=== PATIENT | male | born 1960 | race Caucasian/White ===

== ENCOUNTER → 2017-11-01 09:42 | Outpatient (CLI) | payer BC, SELFPAY ==
[2017-11-01 11:09] LABS: Alanine Aminotransferase 24 U/L (12-78); Albumin Level 3.9 gm/dL (3.4-5.0); Albumin/Globulin Ratio 1.3 (1.1-1.8); Alkaline Phosphatase 89 U/L (46-116); Anion Gap 14.6 mEq/L (5-15); Aspartate Amino Transferase 15 U/L (15-37); Bilirubin,Total 0.5 mg/dL (0.2-1.0); Blood Urea Nitrogen 14 mg/dL (7-18); Calcium 9.2 mg/dL (8.5-10.1); Carbon Dioxide 24 mmol/L (21.0-32.0); Chloride 107 mmol/L (98-107); Chol/HDL Ratio 3.1 (1-3.5); Cholesterol 231 mg/dL (140-200); Creatinine,Serum 0.84 mg/dL (0.70-1.30); Estimated Glomerular Filt Rate 94 ml/min (>60); GFR (African American) 114 ML/MIN (>60); Glucose 109 mg/dL (74-106); HDL Cholesterol 75 mg/dL (27-67); LDL Cholesterol 126 mg/dL (0-130); Potassium 4.6 mmoL/L (3.5-5.1); Sodium 141 mmol/L (136-145); Total Protein,Serum 6.9 gm/dL (6.4-8.2); Triglycerides 151 mg/dL (30-200); VLDL Cholesterol 30 mg/dL (0-40)
== END ==
PROVIDERS: PCP Internal Medicine Adolescent Medicine; Visit Provider Internal Medicine Adolescent Medicine
DX: I10 Essential (primary) hypertension (principal)
CPT/HCPCS: 36415; 80053; 80061

== ENCOUNTER → 2017-11-11 16:36 | Outpatient (CLI) | payer BC, SELFPAY ==
--- NOTE | 2017-11-11 16:47 | XR_ITS ---
XR elbow RT min 3V HISTORY: Pain redness and swelling of the elbow/cellulitis ORDERING PHYSICIAN: Yamileth Reed PATIENT AGE: 57 years COMPARISON: None FINDINGS: Soft tissue swelling is present at the olecranon region. No radiopaque foreign body or displaced fat pad. No bony or joint abnormality. There is a small enthesophyte at the olecranon nonspecific. IMPRESSION: Soft tissue swelling at the olecranon consistent with olecranon bursitis/cellulitis otherwise negative
--- NOTE | 2017-11-11 16:48 | XR_ITS ---
XR forearm RT 2V HISTORY: Pain and swelling and redness right elbow and right forearm ITS.REASON: RIGHT ARM CELLULITIS ORDERING PHYSICIAN: Yamileth Reed PATIENT AGE: 57 years COMPARISON: None FINDINGS: No obvious fracture, dislocation, lytic change or blastic change. Normal mineralization. There is mild soft tissue swelling at the olecranon region with a small enthesophyte at the olecranon. No soft tissue gas or radiopaque foreign body. No bony destructive process. IMPRESSION: Soft tissue swelling at the olecranon which may represent olecranon bursitis or cellulitis otherwise negative
== END ==
PROVIDERS: PCP Internal Medicine Adolescent Medicine; Visit Provider Nurse Practitioner Family
DX: L03.113 Cellulitis of right upper limb (principal)
CPT/HCPCS: 73080; 73090

== ENCOUNTER → 2018-07-27 14:00 | Outpatient (CLI) | payer BC, SELFPAY ==
--- NOTE | 2018-07-27 14:12 | XR_ITS ---
XR knee RT 3V HISTORY: ITS.REASON: PAIN OF RIGHT KNEE, EFFUSION ORDERING PHYSICIAN: Yamileth Reed PATIENT AGE: 58 years COMPARISON: None FINDINGS: There are minor osteoarthritic changes of all 3 compartments. No fracture or dislocation. No lytic or blastic change. Increased soft tissue density is present in the suprapatellar region consistent with knee joint effusion. IMPRESSION: Mild osteoarthritis with suprapatellar effusion
[2018-07-27 15:12] LABS: Basophils % 0.3 % (0.1-2.0); Eosinophils # 0.2 K/mm3 (0.0-0.4); Eosinophils % 1.8 % (0.1-12.0); Hematocrit 41.1 % (42.0-52.0); Hemoglobin 13.2 g/dL (14.1-18.0); Lymphocytes # 1.5 K/mm3 (0.7-4.5); Mean Corpuscular HGB Conc 32.2 g/dL (31.8-35.4); Mean Corpuscular Hemoglobin 31.6 pg (27.0-31.2); Monocytes % 9.5 % (1.7-9.3); Neutrophils % 74.4 % (37.0-80.0); Platelet Count 540 K/mm3 (142-424); Red Blood Count 4.19 M/mm3 (4.60-6.20); Red Cell Distribution Width 12.8 % (11.5-17.5); White Blood Count 10.8 K/mm3 (4.8-10.8)
[2018-07-27 15:48] LABS: Uric Acid 7.6 mg/dL (2.6-7.2)
[2018-07-27 16:29] LABS: C-Reactive Protein 19.4 mg/L (0.0-0.9)
== END ==
PROVIDERS: Orthopaedic Surgery; PCP Internal Medicine Adolescent Medicine; Visit Provider Nurse Practitioner Family
DX: M25.561 Pain in right knee (principal); M25.461 Effusion, right knee
CPT/HCPCS: 36415; 73562; 84550; 85025; 86140; 87070; 87205; 89060

== ENCOUNTER → 2022-06-07 09:00 | Outpatient (CLI) | payer BC, SELFPAY ==
--- NOTE | 2022-06-07 09:05 | XR_ITS ---
FINAL REPORT CLINICAL HISTORY: knee pain. no injury or trauma COMPARISON: July 27, 2018 FINDINGS: RIGHT KNEE: 4 views of the right knee obtained. There is no acute fracture or dislocation. There is mild degenerative change. There is subchondral cyst in the medial femoral condyle that appears new since the prior exam. There is a small joint effusion. IMPRESSION: Mild degenerative change. Subchondral cyst in the medial femoral condyle, new since prior exam. Small joint effusion. Reviewed, Interpreted and Dictated by Jose Horn III, MD Transcribed by Renée Gonzalez Authenticated and . [facility]
[2022-06-10 13:27] LABS: Clarity,Fluid Hazy (Clear); Color,Fluid Straw (Yellow); Eosinophils,Fluid 0 % (Not Estab.); Lymphocytes,Fluid 11 % (Not Estab.); Macrophages,Fluid 5 % (Not Estab.); Nucleated cells, Syn. Fluid 943 cells/uL (0-200); Polys,Fluid 84 % (Not Estab.); RBC,Fluid Rare /uL (Not Estab.)
== END ==
PROVIDERS: PCP Internal Medicine Adolescent Medicine; Visit Provider Orthopaedic Surgery
DX: M25.561 Pain in right knee (principal)
CPT/HCPCS: 73564; 87075; 87205; 89051